=== PATIENT | female | born 1995 | race Caucasian/White ===

== ENCOUNTER 2017-07-18 17:11 | Emergency (ER) | payer OTHER ==
[~2017-07-18] VITALS: Ht 160 cm; Wt 61.9 kg
[2017-07-18 17:21] VITALS: TEMP 36.9; Ht 160 cm; Wt 61.9 kg
[2017-07-18] MEDS ORDERED: AZITHROMYCIN 250 MG TAB PO ONE (19:30)
[2017-07-18] MEDS ORDERED: CEFTRIAXONE SOD 350MG/ML 1 GM VIAL IM ONE (19:30)
[2017-07-18 20:05] VITALS: BP 142/105; PULSE 90; O2SAT 97
--- NOTE | 2017-07-18 20:48 | EMERGENCY ROOM VISIT NOTE ---
History First contact with patient: 18:18 Chief Complaint: PELVIC PAIN Stated Complaint: ITCHY AND BURNING IN VAGINAL AREA History of Present Illness The patient is a 21 year old female who presents to the Emergency Room with complaints of vaginal irritation worsening over the past 3-4 days. The patient states that she went on spring break and had unprotected intercourse with a new partner. Patient subsequently developed pain, irritation, and discharge. Today she also started her menstrual period. The patient does not believe that she is as she did start her menses. She is not having abdominal pain. She does not have a history of STDs in the past. The patient is concerned about possible yeast infection versus other cause of her discomfort. She rates the pain a 5/10 and has not taken anything [id number] for her symptoms. Review of Systems More than 10 systems were reviewed and otherwise negative with the exception of history of present illness. Past Medical/Surgical History No chronic medical disease Social History Smoking Status: Current Some Day Smoker Occupation Status: [employer] Current/Historical Medications No Active Prescriptions or Reported Meds Physical Exam Vital Signs Date Time Temp Pulse Resp B/P (MAP) Pulse Ox O2 Delivery O2 Flow Rate FiO2 07/18/17 20:05 90 18 142/105 97 Room Air 07/18/17 17:21 36.9 106 18 152/95 99 Room Air Physical Exam VITALS: Vitals are noted on the nurse's note and reviewed by myself. Vital signs stable. GENERAL: Well-developed, well-nourished, white female, who is in no acute distress and resting comfortably. Patient is cooperative with the examination. HEAD: Normocephalic atraumatic. HEART: Regular rate and rhythm without murmurs gallops or rubs. LUNGS: Clear to auscultation bilaterally without wheezes, rales or rhonchi. No retractions or accessory muscle use. ABDOMEN: Positive normal bowel sounds x 4. Soft, nontender, without masses or organomegaly. No guarding or rebound tenderness. : Examination was performed in the presence of female nursing intelligence clerk. Normal-appearing external female genitalia without lesion. Vaginal vault is consistent with active menses. No obvious atypical discoloration was otherwise noted. Cervix appears healthy with noted blood in the office. Swabs were performed. No cervical motion tenderness. Medical Decision & Procedures Laboratory Results Test 07/18/17 19:00 07/18/17 19:15 Urine Color YELLOW Urine Appearance TURBID (CLEAR) Urine pH 8.0 (4.5-7.5) Urine Specific [place] 1.017 (1.000-1.030) Urine Protein NEG (NEG) Urine Glucose (UA) NEG (NEG) Urine Ketones NEG (NEG) Urine Occult Blood 3+ (NEG) Urine Nitrite NEG (NEG) Urine Bilirubin NEG (NEG) Urine Urobilinogen NEG (NEG) Urine Leukocyte Esterase NEG (NEG) Urine WBC (Auto) 1-5 /hpf (0-5) Urine RBC (Auto) 10-30 /hpf (0-4) Urine Hyaline Casts (Auto) 1-5 /lpf (0-5) Urine Epithelial Cells (Auto) 10-20 /lpf (0-5) Urine Bacteria (Auto) NEG (NEG) Urine Test NEG (NEG) Date/Time Source Procedure Growth Status 07/18/17 19:00 Cervix Swab Trichomonas Preparation - Final Complete Medications Administered Medications (Trade) Dose Ordered Sig/Eduardo Route Start Time Stop Time Status Last Admin Dose Admin Azithromycin (Zithromax Tab) 1,000 mg NOW ONCE PO 07/18/17 19:30 07/18/17 19:31 DC 07/18/17 19:59 1,000 MG Ceftriaxone Sodium (Rocephin Im) 250 mg NOW ONCE IM 07/18/17 19:30 07/18/17 19:31 DC 07/18/17 19:36 250 MG Diphenhydramine HCl (Benadryl Cap) 25 mg NOW ONCE PO 07/18/17 19:30 07/18/17 19:31 DC 07/18/17 19:36 25 MG ED Course Physical exam and history were performed. Nursing notes, EMR, and Medication List were personally reviewed. Patient appears to have vaginal irritation for the past few days after intercourse. On examination she is on her menstrual period, and I did perform swabs. Urine was collected, with negative and no obvious signs of infection. I will await for cultures before treating any urine findings. Overall the patient will be treated for possible chlamydia and gonorrhea infection. The patient has an allergy listed to Cefixime, and I discussed options of care with the ER pharmacist. The pharmacist was able to confirm that the allergy was from years ago when the patient was an , and does not appear to be consistent with a Katz-Brenden reaction. Because of this, and lack of other reasonable treatment, the patient will be given oral Zithromax , IM Rocephin, and a dose of oral Benadryl. I would like her to continue the oral Benadryl for the next 24 hours. Overall the patient will need to follow with S with any ongoing or persisting symptoms. We will contact her if cultures return positive. The patient was pleased and voiced understanding. The chart was completed utilizing [employer] Speech Voice Recognition Software. Grammatical errors, random word insertions, pronoun errors, and incomplete sentences are an occasional consequence of this system due to software limitations, ambient noise, and hardware issues. Any formal questions or concerns about the content, text, or information contained within the body of this dictation should be directly addressed to the provider for clarification. . Medical Decision Differential diagnosis: Etiologies such as STD, yeast infection, vaginosis, , ectopic , dysfunction uterine bleeding, bleeding dyscrasia, trauma, infection, as well as others were entertained. Impression Primary Impression: Vaginal irritation Departure Information Dispostion Home / Self-Care Condition GOOD Prescriptions No Active Prescriptions or Reported Meds Forms HOME CARE DOCUMENTATION FORM, IMPORTANT VISIT INFORMATION Patient Instructions [facility] Additional Instructions You were seen and evaluated today on an emergency basis only. This is not a substitute for, or an effort to provide, complete comprehensive medical care. It is not possible to recognize and treat all injuries or illnesses in a single emergency department visit. For this reason it is recommended that you followup with S or your primary care physician with any ongoing or persisting symptoms. We will contact you if your cultures show positive results. Take Benadryl 25 mg every 6 hours for the next 1 day. You are welcome to return to the emergency department anytime with new, worsening, or concerning symptoms.
== END 2017-07-18 20:07 | disposition home or self-care (01) ==
LOC: C.EDB 17:13 → C.EDD 20:07
DX: N89.8 Other specified noninflammatory disorders of vagina (principal); F17.200 Nicotine dependence, unspecified, uncomplicated